=== PATIENT | female | born 1965 | race Caucasian/White ===

== ENCOUNTER 2017-11-24 16:02 | Inpatient (IN) | payer OTHER ==
[2017-11-24 16:59] VITALS: BMI 25.1
--- NOTE | 2017-11-24 18:16 | HP ---
CIWA Score - CIWA Score Nausea/Vomitin-Mild Nausea/No Vomiting Muscle Tremors: 2 Anxiety: 3 Agitation: 2 Paroxysmal Sweats: 2 Orientation: 0-Oriented Tacttile Disturbances: 2-Mild Itch/Numbness/Burn Auditory Disturbances: 0-None Visual Disturbances: 0-None Headache: 0-None Present CIWA-Ar Total Score: 12 Admission ROS BHS - HPI Chief Complaint: " I need help, I've been drinking everyday" Allergies/Adverse Reactions: Allergies Allergy/AdvReac Type Severity Reaction Status Date / Time sulfamethoxazole Allergy Rash Verified 11/24/17 18:20 [From Bactrim] trimethoprim [From Bactrim] Allergy Rash Verified 11/24/17 18:20 Tetanus Vaccines and Toxoid AdvReac Difficulty Verified 11/24/17 18:20 Breathing History of Present Illness: 52 yo female with chronic alcohol and nicotine dependence is here seeking detox. PMHX: Hyperlipidemia, Scoliosis, Liver problems (unspecified), depression and anxiety. Denies suicidal / homicidal ideation. Reports hx of self cutting in the past. Rehab [facility] in [place] for a year, seven years ago. Longest period of sobriety one year. Denies hx of seizures or blackouts. Exam Limitations: No Limitations - Ebola screening Have you traveled outside of the country in the last 21 days: No Have you had contact with anyone from an Ebola affected area: No Have you been sick,other than usual withdrawal symptoms: No Do you have a fever: No - Review of Systems Constitutional: Loss of Appetite, Changes in sleep, Unintentional Wgt. Loss EENT: reports: Blurred Vision (wears glasses) Respiratory: reports: Cough (started when started smoking cigarettes again three months ago), SOB with Exertion Cardiac: reports: Palpitations GI: reports: Constipated (last bm yesterday), Nausea, Poor Appetite, Poor Fluid Intake : reports: No Symptoms Reported Musculoskeletal: reports: Back Pain Integumentary: reports: No Symptoms Reported Neuro: reports: No Symptoms reported Endocrine: reports: Increased Thirst Hematology: reports: No Symptoms Reported Psychiatric: reports: Orientated x3, Anxious Other Systems: Reviewed and Negative Patient History - Patient Medical History Hx Anemia: No Hx Asthma: No Hx Chronic Obstructive Pulmonary Disease (COPD): No Hx Cancer: No Hx Cardiac Disorders: No Hx Congestive Heart Failure: No Hx Hypertension: No Hx Hypercholesterolemia: Yes (no meds ) Hx Pacemaker: No HX Cerebrovascular Accident: No Hx Seizures: No Hx Dementia: No Hx Diabetes: No Hx Gastrointestinal Disorders: No Hx Liver Disease: Yes (unspecified liver problem) Hx Genitourinary Disorders: No Hx Sexually Transmitted Disorders: Yes (gonnorhea ) Hx Renal Disease (ESRD): No Hx Thyroid Disease: No Hx Human Immunodeficiency Virus (HIV): No (last tested at 32 yo) Hx Hepatitis C: No Hx Depression: Yes Hx Suicide Attempt: No Hx Bipolar Disorder: No Hx Schizophrenia: No - Patient Surgical History Past Surgical History: Yes Hx Neurologic Surgery: No Hx Cataract Extraction: No Hx Cardiac Surgery: No Hx Lung Surgery: No Hx Breast Surgery: No Hx Breast Biopsy: No Hx Abdominal Surgery: No Hx Appendectomy: No Hx Cholecystectomy: No Hx Genitourinary Surgery: No Hx Section: No Hx Orthopedic Surgery: No Hx Hysterectomy: No - PPD History Previous Implant?: Yes Documented Results: Negative w/o proof PPD to be Administered?: Yes - Reproductive History Patient is a Female of Child Bearing Age (11 -55 yrs old): Yes (post menopausal ) - Smoking Cessation Smoking history: Current every day smoker Have you smoked in the past 12 months: Yes Aproximately how many cigarettes per day: 20 Hx Chewing Tobacco Use: No Initiated information on smoking cessation: Yes 'Breaking Loose' booklet given: 11/24/17 - Substance & Tx. History Hx Alcohol Use: Yes Hx Substance Use: Yes Substance Use Type: Alcohol Hx Substance Use Treatment: Yes ([facility] in [place] for a year, seven years ago) - Substances Abused Alcohol Route: Oral Frequency: Daily Amount used: 1/2 litter [place] Age of first use: 16 Date of Last Use: 11/24/17 Family Disease History - Family Disease History Family Disease History: Other: Father (, [place] ), Mother ( during plastic surgery ) Admission Physical Exam BHS - Vital Signs Vital Signs: Vital Signs - 24 hr 11/24/17 16:57 Temperature 98.4 F Pulse Rate 81 Respiratory 18 Rate Blood Pressure 119/89 - Physical General Appearance: Yes: Disheveled, Sweating, Anxious HEENTM: Yes: EOMI, Hearing grossly Normal, Normal ENT Inspection, Normocephalic , Normal Voice, PJ, Pharynx Normal, Tm's normal, Other (dry mucous membranes) Respiratory: Yes: Chest Non-Tender, Lungs Clear, Normal Breath Sounds, No Respiratory Distress, No Accessory Muscle Use Neck: Yes: Within Normal Limits Breast: Yes: Breast Exam Deferred Cardiology: Yes: Regular Rhythm, Regular Rate Abdominal: Yes: Normal Bowel Sounds, Non Tender, Soft, Protuberent Genitourinary: Yes: Within Normal Limits Back: Yes: Normal Inspection Musculoskeletal: Yes: full range of Motion, Gait Steady, Pelvis Stable, Back pain Extremities: Yes: Normal Capillary Refill, Normal Inspection, Normal Range of Motion, Non-Tender Neurological: Yes: razor grinder II-XII NML intact, Fully Oriented, Alert, Motor Strength 5/5, Depressed Affect Integumentary: Yes: Normal Color, Warm, Diaphoresis Lymphatic: Yes: Within Normal Limits - Diagnostic (1) Nausea Current Visit: Yes Status: Acute (2) Alcohol dependence with withdrawal Current Visit: Yes Status: Acute Qualifiers: Complication of substance-induced condition: uncomplicated Qualified Code(s ): F10.230 - Alcohol dependence with withdrawal, uncomplicated (3) Nicotine dependence Current Visit: Yes Status: Acute Qualifiers: Nicotine product type: cigarettes (4) Depressed mood Current Visit: Yes Status: Acute (5) Back pain Current Visit: Yes Status: Acute Qualifiers: Back pain location: low back pain Chronicity: chronic Back pain laterality: midline Sciatica presence: without sciatica Qualified Code(s): M54.5 - Low back pain; G89.29 - Other chronic pain (6) Dehydration Current Visit: Yes Status: Acute Cleared for Admission [facility] - Detox or Rehab [facility] Level of Care: Medically Managed Detox Regimen/Protocol: Librium [facility] Breath Alcohol Content Breath Alcohol Content: 0.199 Urine Drug Screen - Results Drug Screen Negative: Yes
[2017-11-24] MEDS ORDERED: ACETAMINOPHEN 325 MG TABLET (FP) PO PRN (18:39)
[2017-11-24] MEDS ORDERED: P-EPHED 60MG/TRIPROLIDI 2.5MG TABLET PO PRN (18:39)
[2017-11-24] MEDS ORDERED: MAGNESIUM CITRATE 300 ML BOTTLE PO PRN (18:39)
[2017-11-24] MEDS ORDERED: MAGNESIUM HYDROX 2400MG/30ML ORAL SUSPENSION 30 ML CUP PO PRN (18:39)
[2017-11-24] MEDS ORDERED: MENTHOL/PHENOL 1 EACH UD MM PRN (18:39)
[2017-11-24] MEDS ORDERED: MAG HYDROX/AL HYDROX/SIMETH 30 ML UNIT-DOSE CUP PO PRN (18:39)
[2017-11-24] MEDS ORDERED: LOPERAMIDE HCL 2 MG CAPSULE PO PRN (18:39)
[2017-11-24] MEDS ORDERED: chlordiazePOXIDE HCL 25 MG CAPSULE PO PRN (18:39)
[2017-11-24] MEDS ORDERED: hydrOXYzine PAMOATE 50 MG CAPSULE (FP) PO PRN (18:39)
[2017-11-24] MEDS ORDERED: IBUPROFEN 400 MG TABLET (FP) PO PRN (18:39)
[2017-11-24] MEDS ORDERED: guaiFENesin/D-METHORPHAN HB 10 ML UNIT-DOSE CUPS PO PRN (18:39)
[2017-11-24] MEDS ORDERED: NICOTINE POLACRILEX 2 MG GUM BC PRN (18:39)
[2017-11-24] MEDS ORDERED: ONDANSETRON *ODT* 4 MG TABLET SL PRN (20:42)
[2017-11-24] MEDS ORDERED: chlordiazePOXIDE HCL 25 MG CAPSULE PO ONE (20:45)
[2017-11-24] MEDS ORDERED: MELATONIN 5 MG TABLETS PO PRN (22:00)
[2017-11-24] MEDS: chlordiazePOXIDE HCL 25 MG CAPSULE PO SCH (22:57)
[2017-11-24] MEDS: CYCLOBENZAPRINE HCL 5 MG TABLET PO SCH (22:57)
[2017-11-24] MEDS: THIAMINE HCL 100 MG TABLET (FP) PO SCH (22:58)
[2017-11-24] MEDS: LIDOCAINE PATCH REMOVAL MC SCH (23:04)
[2017-11-24] MEDS: LIDOCAINE 5% TOPICAL PATCH TP SCH ×2 (23:05→23:11)
[2017-11-25] MEDS: chlordiazePOXIDE HCL 25 MG CAPSULE PO SCH ×4 (05:17→22:21)
[2017-11-25] MEDS: CYCLOBENZAPRINE HCL 5 MG TABLET PO SCH ×3 (05:17→22:21)
--- NOTE | 2017-11-25 09:39 | EKG ---
Test Reason : Blood Pressure : / mmHG Vent. Rate : 087 BPM Atrial Rate : 087 BPM P-R Int : 172 ms QRS Dur : 062 ms QT Int : 392 ms P-R-T Axes : 068 064 070 degrees QTc Int : 471 ms SINUS RHYTHM WITH FUSION COMPLEXES AND PREMATURE ATRIAL COMPLEXES POSSIBLE LEFT ATRIAL ENLARGEMENT SEPTAL INFARCT , AGE UNDETERMINED ABNORMAL ECG NO PREVIOUS ECGS AVAILABLE Confirmed by NEFTALI ROTHMAN, ROBIN ([id number]) on 11/25/2017 9:38:53 AM Referred By: Confirmed By:ROBIN LINDSAY MD
[2017-11-25 09:57] LABS: CHLORIDE 101 mmol/L (98-107); POTASSIUM 4.2 mmol/L (3.5-5.1); SODIUM 140 mmol/L (136-145)
[2017-11-25 10:04] LABS: HEMATOCRIT 34.8 % (32.4-45.2); HEMOGLOBIN 11.7 GM/dL (10.7-15.3); MCH 35.6 pg (25.7-33.7); MCHC 33.6 g/dl (32.0-36.0); MEAN CELL VOLUME 105.9 fl (80-96); MEAN PLT VOLUME 8.4 fl (7.5-11.1); PLATELET COUNT 92 K/MM3 (134-434); RBC 3.28 M/mm3 (3.60-5.2); RDW 15.9 % (11.6-15.6); WHITE BLOOD COUNT 3.7 K/mm3 (4.0-10.0)
[2017-11-25] MEDS: NICOTINE 21 MG/24 HOURS TOPICAL PATCH TD SCH (10:44)
[2017-11-25] MEDS: LIDOCAINE 5% TOPICAL PATCH TP SCH (10:44)
[2017-11-25] MEDS: PRENATAL VITAMINS W/ FOLIC ACID TABLET (FP) PO SCH (10:45)
[2017-11-25 10:55] LABS: ALBUMIN 3.6 g/dl (3.4-5.0); ALK PHOS 51 U/L (45-117); ANION GAP 15 (8-16); BLOOD UREA NITROGEN 12 mg/dL (7-18); CALCIUM 8.6 mg/dL (8.5-10.1); CO2 24 mmol/L (21-32); CREATININE 0.8 mg/dL (0.55-1.02); GLUCOSE,RANDOM 61 mg/dL (74-106); SGOT/AST 77 U/L (15-37); SGPT/ALT 56 U/L (12-78); TOT PROT 6.4 g/dl (6.4-8.2)
--- NOTE | 2017-11-25 10:58 | CONSULT ---
[facility] Psychiatric Consult - Data Date of interview: 11/25/17 Admission source: [facility] Identifying data: 52 yo female with chronic alcohol and nicotine dependence is here seeking detox. PMHX: Hyperlipidemia, Scoliosis, Liver problems (unspecified ), depression and anxiety. Denies suicidal / homicidal ideation. Reports hx of self cutting in the past. Rehab [facility] in [place] for a year, seven years ago. Longest period of sobriety one year. Denies hx of seizures or blackouts. Exam Limitations: No Limitations Substance Abuse History: - Smoking Cessation. Smoking history: Current every day smoker. Have you smoked in the past 12 months: Yes. Aproximately how many cigarettes per day: 20. Hx Chewing Tobacco Use: No. Initiated information on smoking cessation: Yes. 'Breaking Loose' booklet given: 11/24/17. - Substance & Tx. History. Hx Alcohol Use: Yes. Hx Substance Use: Yes. Substance Use Type : Alcohol. Hx Substance Use Treatment: Yes ([facility] in [place] for a year, seven years ago). - Substances Abused. Alcohol. Route: Oral. Frequency: Daily. Amount used: 1/2 litter [place]. Age of first use: 16. Date of Last Use: 11/24/17 Medical History: LBP Psychiatric History: Patient reports history of depression, denies psychiatric hospitalization history, reports no medications taking prior to admission Physical/Sexual Abuse/Trauma History: Denies Additional Comment: Observation. Detox Unit Care [facility] Mental Status Exam - Mental Status Exam Alert and Oriented to: Person Cognitive Function: Fair Patient Appearance: Unkempt Mood: Sad Affect: Flat Patient Behavior: Sedated Speech Pattern: Delayed Voice Loudness: Mildly Soft/Quiet Thought Process: Circumstantial Thought Disorder: Being Controlled Hallucinations: Denies Suicidal Ideation: Denies Homicidal Ideation: Denies Insight/Judgement: Fair Sleep: Difficulty falling asleep Appetite: Fair Muscle strength/Tone: Mild Hypotonicity Gait/Station: Shuffling Additional Comments: Observation. [facility] Psychiatric Findings - Problem List ([place] 1, 2,3) (1) Drug-induced mood disorder Current Visit: Yes Status: Suspected (2) Alcohol dependence with withdrawal Current Visit: Yes Status: Acute Qualifiers: Complication of substance-induced condition: uncomplicated Qualified Code(s ): F10.230 - Alcohol dependence with withdrawal, uncomplicated (3) Back pain Current Visit: Yes Status: Acute Qualifiers: Back pain location: low back pain Chronicity: chronic Back pain laterality: midline Sciatica presence: without sciatica Qualified Code(s): M54.5 - Low back pain; G89.29 - Other chronic pain (4) Depressed mood Current Visit: Yes Status: Acute (5) Nicotine dependence Current Visit: Yes Status: Acute Qualifiers: Nicotine product type: cigarettes - Initial Treatment Plan Initial Treatment Plan: Observation. Detox Unit Care [facility]
--- NOTE | 2017-11-25 11:37 | PN ---
[facility] CIWA - CIWA Score Nausea/Vomitin-Mild Nausea/No Vomiting Muscle Tremors: 2 Anxiety: 3 Agitation: 2 Paroxysmal Sweats: 3 Orientation: 0-Oriented Tacttile Disturbances: 1-Very Mild Itch/Numbness Auditory Disturbances: 0-None Visual Disturbances: 0-None Headache: 0-None Present CIWA-Ar Total Score: 12 S Progress Note (SOAP) Subjective: interrupted sleep, sweats , decreased appetite Objective: 11/25/17 11:36 Vital Signs Temperature 97.7 F 11/25/17 09:23 Pulse Rate 82 11/25/17 11:30 Respiratory Rate 20 11/25/17 11:30 Blood Pressure 123/81 11/25/17 09:23 O2 Sat by Pulse Oximetry (%) Laboratory Tests 11/25/17 11/25/17 06:40 06:40 WBC 3.7 L RBC 3.28 L Hgb 11.7 Hct 34.8 MCV 105.9 H MCH 35.6 H MCHC 33.6 RDW 15.9 H Plt Count 92 L MPV 8.4 Sodium 140 Potassium 4.2 Chloride 101 Carbon Dioxide 24 Anion Gap 15 BUN 12 Creatinine 0.8 Creat Clearance w eGFR > 60 Random Glucose 61 L Calcium 8.6 Total Bilirubin 1.0 AST 77 H ALT 56 Alkaline Phosphatase 51 Total Protein 6.4 Albumin 3.6 pt aox3 in nad ambulating well Assessment: 11/25/17 11:36 withdrawal sx's elevated transaminases mild anema Plan: cont. detox increase fluids ensure bid
[2017-11-25] MEDS: THIAMINE HCL 100 MG TABLET (FP) PO SCH (22:21)
[2017-11-25] MEDS: LIDOCAINE PATCH REMOVAL MC SCH (22:40)
[2017-11-26] MEDS: chlordiazePOXIDE HCL 25 MG CAPSULE PO SCH ×3 (09:21→17:39)
[2017-11-26] MEDS: CYCLOBENZAPRINE HCL 5 MG TABLET PO SCH ×3 (09:21→22:13)
--- NOTE | 2017-11-26 10:06 | PN ---
[facility] CIWA - CIWA Score Nausea/Vomitin-No Nausea/No Vomiting Muscle Tremors: None Anxiety: 1-Mildly Anxious Agitation: 0-Normal Activity Paroxysmal Sweats: No Perspiration Orientation: 0-Oriented Tacttile Disturbances: 0-None Auditory Disturbances: 0-None Visual Disturbances: 0-None Headache: 0-None Present CIWA-Ar Total Score: 1 S Progress Note (SOAP) Subjective: PATIENT DETOX FROM ALCOHOL WITHDRAWAL. STATES SHE FEELS WELL. WAS INITIALLY REQUESTING TO SIGN OUT AMA. TODAY SHE STATES HER IS IN HOSPITAL AND SHE WANTS TO GO HOME TO SEE HIM. DENIES ANY MEDICAL COMPLAINTS. STATES "I FEEL GREAT". Objective: 11/26/17 10:02 Vital Signs Temperature 98.1 F 11/26/17 09:27 Pulse Rate 79 11/26/17 09:27 Respiratory Rate 16 11/26/17 09:27 Blood Pressure 102/51 11/26/17 09:27 O2 Sat by Pulse Oximetry (%) Laboratory Tests 11/25/17 11/25/17 11/25/17 06:40 06:40 06:40 WBC 3.7 L RBC 3.28 L Hgb 11.7 Hct 34.8 MCV 105.9 H MCH 35.6 H MCHC 33.6 RDW 15.9 H Plt Count 92 L MPV 8.4 Sodium 140 Potassium 4.2 Chloride 101 Carbon Dioxide 24 Anion Gap 15 BUN 12 Creatinine 0.8 Creat Clearance w eGFR > 60 Random Glucose 61 L Calcium 8.6 Total Bilirubin 1.0 AST 77 H ALT 56 Alkaline Phosphatase 51 Total Protein 6.4 Albumin 3.6 RPR Titer Nonreactive HIV 1&2 Antibody Screen HIV P24 Antigen 11/25/17 06:40 WBC RBC Hgb Hct MCV MCH MCHC RDW Plt Count MPV Sodium Potassium Chloride Carbon Dioxide Anion Gap BUN Creatinine Creat Clearance w eGFR Random Glucose Calcium Total Bilirubin AST ALT Alkaline Phosphatase Total Protein Albumin RPR Titer HIV 1&2 Antibody Screen Negative HIV P24 Antigen Negative OBJ: GENERAL: ALERT AND ORIENTED X 3. IN NO ACUTE DISTRESS. SKIN: INTACT, WARM AND DRY CAR: S1S2 RESP: CTA BL EXT: NO EDEMA PSYCH: MILD ANXIETY. Assessment: 11/26/17 10:03 ALCOHOL DETOX ANXIETY Plan: TOLERATING DETOX WELL MEDICALLY STABLE PT ENCOURAGED TO COMPLETE DETOX AND RISK OF RELAPSE WITH SIGNING OUT AMA PATIENT LATER AGREED TO STAY AND COMPLETE DETOX CONTINUE CURRENT TREATMENT ORAL FLUIDS ENCOURAGED
[2017-11-26] MEDS: PRENATAL VITAMINS W/ FOLIC ACID TABLET (FP) PO SCH (10:11)
[2017-11-26] MEDS: LIDOCAINE 5% TOPICAL PATCH TP SCH (10:12)
[2017-11-26] MEDS: NICOTINE 21 MG/24 HOURS TOPICAL PATCH TD SCH (10:13)
[2017-11-26 14:38] LABS: URINE APPEARANCE CLEAR; URINE BILIRUBIN NEGATIVE (<2.0 mg/dL); URINE BLOOD NEGATIVE (NEGATIVE); URINE COLOR YELLOW; URINE GLUCOSE (UA) NEGATIVE (NEGATIVE); URINE KETONE NEGATIVE (NEGATIVE); URINE LEUK ESTERASE NEGATIVE (NEGATIVE); URINE NITRITE NEGATIVE (NEGATIVE); URINE PROTEIN NEGATIVE (NEGATIVE)
[2017-11-26] MEDS: chlordiazePOXIDE 5 MG CAPSULE PO SCH (22:13)
[2017-11-26] MEDS: THIAMINE HCL 100 MG TABLET (FP) PO SCH (22:13)
[2017-11-26] MEDS: LIDOCAINE PATCH REMOVAL MC SCH (22:14)
[2017-11-27] MEDS: CYCLOBENZAPRINE HCL 5 MG TABLET PO SCH (05:19)
[2017-11-27] MEDS: chlordiazePOXIDE 5 MG CAPSULE PO SCH (05:19)
[2017-11-27 09:28] VITALS: BP 103/71; PULSE 70; TEMP 97.7
[2017-11-27] MEDS ORDERED: chlordiazePOXIDE HCL 10 MG CAPSULE PO ONE (09:50)
[2017-11-27] MEDS: LIDOCAINE 5% TOPICAL PATCH TP SCH (10:13)
[2017-11-27] MEDS: PRENATAL VITAMINS W/ FOLIC ACID TABLET (FP) PO SCH (10:13)
[2017-11-27] MEDS: NICOTINE 21 MG/24 HOURS TOPICAL PATCH TD SCH (10:13)
--- NOTE | 2017-11-27 11:25 | PN ---
BHS Progress Note (SOAP) Subjective: Pt states she needs to leave today as her is in the hospital preparing for bariatric surgery. Pt states she is feeling fine and has no Sx of alcohol withdrawal Objective: 11/27/17 11:22 CBC, BMP 11/25/17 06:40 11/25/17 06:40 Vital Signs - 24 hr 11/26/17 11/26/17 11/26/17 13:34 17:29 21:48 Temperature 97.9 F 98.2 F 97.7 F Pulse Rate 101 H 82 91 H Respiratory 16 18 18 Rate Blood Pressure 119/78 96/74 103/81 11/27/17 11/27/17 11/27/17 00:30 03:30 07:28 Temperature 97.2 F L Pulse Rate 71 Respiratory 18 18 18 Rate Blood Pressure 108/56 11/27/17 09:27 Temperature 97.7 F Pulse Rate 70 Respiratory 16 Rate Blood Pressure 103/71 awake and alert and in on NAD- Assessment: 11/27/17 11:23 52 yo with alcohol use disorder- no evidence of withdrawal- wants to leave today to help her pre-op. Plan: Pt is not in withdrawal, is still on day #3 of librium, was to have received 15mg today- will give 10mg librium today and Zofran for nausea- pt states she will f/u with PCP and has plans to go to [facility].
--- NOTE | 2017-11-27 11:31 | DS ---
[facility] Detox Discharge Summary Admission Date: 11/24/17 Discharge Date: 11/27/17 - History Present History: Alcohol Dependence Additional Comments: pt states will follow up with PCP, wants to get Zofran for nausea. - Physical Exam Results Vital Signs: Vital Signs Temperature 97.7 F 11/27/17 09:27 Pulse Rate 70 11/27/17 09:27 Respiratory Rate 16 11/27/17 09:27 Blood Pressure 103/71 11/27/17 09:27 O2 Sat by Pulse Oximetry (%) CBC, BMP 11/25/17 06:40 11/25/17 06:40 d/w pt these results- need for f/u of high AST- maybe related to alcohol use CBC,CMP WBC 3.7 K/mm3 (4.0-10.0) L 11/25/17 06:40 RBC 3.28 M/mm3 (3.60-5.2) L 11/25/17 06:40 Hgb 11.7 GM/dL (10.7-15.3) 11/25/17 06:40 Hct 34.8 % (32.4-45.2) 11/25/17 06:40 MCV 105.9 fl (80-96) H 11/25/17 06:40 MCH 35.6 pg (25.7-33.7) H 11/25/17 06:40 MCHC 33.6 g/dl (32.0-36.0) 11/25/17 06:40 RDW 15.9 % (11.6-15.6) H 11/25/17 06:40 Plt Count 92 K/MM3 (134-434) L 11/25/17 06:40 MPV 8.4 fl (7.5-11.1) 11/25/17 06:40 Sodium 140 mmol/L (136-145) 11/25/17 06:40 Potassium 4.2 mmol/L (3.5-5.1) 11/25/17 06:40 Chloride 101 mmol/L (98-107) 11/25/17 06:40 Carbon Dioxide 24 mmol/L (21-32) 11/25/17 06:40 Anion Gap 15 (8-16) 11/25/17 06:40 BUN 12 mg/dL (7-18) 11/25/17 06:40 Creatinine 0.8 mg/dL (0.55-1.02) 11/25/17 06:40 Creat Clearance w eGFR > 60 (>60) 11/25/17 06:40 Random Glucose 61 mg/dL (74-106) L 11/25/17 06:40 Calcium 8.6 mg/dL (8.5-10.1) 11/25/17 06:40 Total Bilirubin 1.0 mg/dL (0.2-1.0) 11/25/17 06:40 AST 77 U/L (15-37) H 11/25/17 06:40 ALT 56 U/L (12-78) 11/25/17 06:40 Alkaline Phosphatase 51 U/L (45-117) 11/25/17 06:40 Total Protein 6.4 g/dl (6.4-8.2) 11/25/17 06:40 Albumin 3.6 g/dl (3.4-5.0) 11/25/17 06:40 - Treatment Hospital Course: Detox Protocol Followed (pt completed 2-3 days of alcohol detox protocol- wanted to leave to take care of - pt without signs of withdrawal. Pt without complaints) - Medication Discharge Medications: Ambulatory Orders NK [No Known Home Medication] 11/24/17 Ondansetron [Zofran Odt -] 8 mg SL Q8H PRN 7 Days #7 tab.sl 11/27/17 - Diagnosis (1) Alcohol dependence with withdrawal Current Visit: Yes Status: Chronic Qualifiers: Complication of substance-induced condition: uncomplicated Qualified Code(s ): F10.230 - Alcohol dependence with withdrawal, uncomplicated - AMA Did Patient Leave Against Medical Advice: No
[2017-11-27] MEDS ORDERED: chlordiazePOXIDE HCL 10 MG CAPSULE PO SCH (23:00)
== END 2017-11-27 10:18 | disposition home or self-care (01) | DRG 775 ==
LOC: YASAS 16:02 → Y6N 20:27
PROVIDERS: ADMIT Surgery; ATTEND Surgery
PROC: HZ2ZZZZ Detoxification Services for Substance Abuse Treatment (ICD-10-PCS; principal; 2017-11-24)
DX: F10.230 Alcohol dependence with withdrawal, uncomplicated (principal); F17.210 Nicotine dependence, cigarettes, uncomplicated; F41.9 Anxiety disorder, unspecified; F19.24 Other psychoactive substance dependence with psychoactive substance-induced mood disorder; F32.9 Major depressive disorder, single episode, unspecified; M54.5 Low back pain; G89.29 Other chronic pain; R74.0 Nonspecific elevation of levels of transaminase and lactic acid dehydrogenase [LDH]; R11.0 Nausea; E86.0 Dehydration; Z87.42 Personal history of other diseases of the female genital tract; Z88.2 Allergy status to sulfonamides; Z88.8 Allergy status to other drugs, medicaments and biological substances
CPT/HCPCS: 36415; 80053; 81003; 85027; 86593; 87389; 93005; 93010; Q0162